=== PATIENT | male | born 1970 | race Asian ===

== ENCOUNTER 2016-07-11 19:04 | Inpatient (IN) | payer OTHER ==
[~2016-07-11] VITALS: Ht 167.6 cm; Wt 65.5 kg
[~2016-07-11 19:04] MED LIST: ATORVASTATIN CA40 M1 PO; CARVEDILOL3.125 M1 PO; COL100 PO; CYCLOBENZAPRINE10 MG PO; FUROSEMIDE40 MG PO; LASIX20 MG PO; METOPROLOL TART25 M1 PO; NOR10T PO; NORCO1 TA2 PO
[2016-07-11 20:22] LABS: BASOPHIL % 0.4 % (0-2); PLATELET COUNT 176 x10^3mcL (130-400); RED CELL DISTRIBUTION WIDTH 13.9 % (11.5-14.5)
[2016-07-11 20:38] LABS: ALBUMIN 4.2 g/dL (3.4-5.0); BILIRUBIN TOTAL 1.5 mg/dL (0.20-1.00); CALCIUM 9.3 mg/dL (8.5-10.1); CARBON DIOXIDE 26.4 mmol/L (21-32); CREATININE SERUM 2.7 mg/dL (0.7-1.3)
[2016-07-11 20:45] LABS: TOTAL PROTEIN, SERUM 8.3 g/dL (6.4-8.2)
[2016-07-11 20:46] LABS: POTASSIUM SERUM 6.3 mmol/L (3.5-5.1)
[2016-07-11] MEDS ORDERED: METOPROLOL TART25 M1 PO (23:27)
[2016-07-11] MEDS ORDERED: BENAZEPRIL HYDR10 M1 PO (23:28)
[2016-07-11] MEDS ORDERED: BACLOFEN10 MG PO (23:30)
[2016-07-11] MEDS ORDERED: INDOMETHACIN25 MG PO (23:31)
[2016-07-12] VITALS (7 sets, daily range): BP systolic 95–140; BP diastolic 66–102
[2016-07-12 00:05] LABS: CARBON DIOXIDE 27.7 mmol/L (21-32); CREATININE SERUM 2.1 mg/dL (0.7-1.3); POTASSIUM SERUM 4.5 mmol/L (3.5-5.1)
[2016-07-12 00:14] LABS: CHOLESTEROL/HDL RATIO 4.3
[2016-07-12 00:32] LABS: T3 TOTAL 0.86 ng/mL
[2016-07-12 00:36] LABS: FREE T4 0.98 ng/dL (0.76-1.46); FREE THYROXINE INDEX 2.7 ug/dL (1.4-4.5)
[2016-07-12 05:02] LABS: BASOPHIL % 0.1 % (0-2); PLATELET COUNT 179 x10^3mcL (130-400); RED CELL DISTRIBUTION WIDTH 14.1 % (11.5-14.5)
[2016-07-12 05:21] LABS: CALCIUM 6.6 mg/dL (8.5-10.1); CARBON DIOXIDE 23.3 mmol/L (21-32); CREATININE SERUM 1.8 mg/dL (0.7-1.3); MAGNESIUM 1.6 mg/dL (1.8-2.4); PHOSPHOROUS 2.6 mg/dL (2.5-4.9); POTASSIUM SERUM 4.1 mmol/L (3.5-5.1)
[2016-07-12 19:09] LABS: CALCIUM 7.3 mg/dL (8.5-10.1); CARBON DIOXIDE 26.6 mmol/L (21-32); CREATININE SERUM 1.7 mg/dL (0.7-1.3); POTASSIUM SERUM 3.3 mmol/L (3.5-5.1)
[2016-07-13 03:12] VITALS: BP 103/70
[2016-07-13 05:46] LABS: BASOPHIL % 0.1 % (0-2); PLATELET COUNT 147 x10^3mcL (130-400); RED CELL DISTRIBUTION WIDTH 13.9 % (11.5-14.5)
[2016-07-13 05:59] LABS: CARBON DIOXIDE 23.4 mmol/L (21-32); CREATININE SERUM 1.5 mg/dL (0.7-1.3); MAGNESIUM 2.4 mg/dL (1.8-2.4); POTASSIUM SERUM 3.3 mmol/L (3.5-5.1); URIC ACID 6.9 mg/dL (3.5-7.2)
[2016-07-13 08:00] VITALS: BP 111/72
[2016-07-13 12:00] VITALS: BP 95/66
[2016-07-13 16:30] VITALS: BP 92/66
[2016-07-13 17:13] VITALS: BP 105/73
[2016-07-13 17:54] LABS: UA SPECIFIC GRAVITY >=1.030 (1.005-1.035); microscopic required? YES; urine erythrocyte TRACE (NEGATIVE)
[2016-07-13 21:24] VITALS: BP 112/72
[2016-07-13 23:40] LABS: AMPHETAMINE QUAL UR NONE DETECTED (NEG <=1000)
[2016-07-14 05:52] VITALS: BP 137/82
[2016-07-14 06:31] LABS: BASOPHIL % 0.1 % (0-2); PLATELET COUNT 162 x10^3mcL (130-400); RED CELL DISTRIBUTION WIDTH 13.5 % (11.5-14.5)
[2016-07-14 06:43] LABS: CALCIUM 7.8 mg/dL (8.5-10.1); CARBON DIOXIDE 22.3 mmol/L (21-32); CREATININE SERUM 1.5 mg/dL (0.7-1.3); MAGNESIUM 2.1 mg/dL (1.8-2.4); PHOSPHOROUS 2.9 mg/dL (2.5-4.9); POTASSIUM SERUM 3.8 mmol/L (3.5-5.1)
[2016-07-14 09:39] VITALS: BP 126/78
[2016-07-14] MEDS ORDERED: ASPIR 8181 MG PO ×2 (11:00→11:53)
[2016-07-14] MEDS ORDERED: SIMETHICONE80 MG CH (11:45)
[2016-07-14] MEDS ORDERED: PROTONIX40 MG PO (11:45)
[2016-07-14] MEDS ORDERED: CLINDAMYCIN HC300 MG PO (11:51)
[2016-07-14] MEDS ORDERED: LEVAQUIN750 MG PO (11:51)
[2016-07-14] MEDS ORDERED: LAC PO (11:52)
[2016-07-14 12:38] VITALS: BP 126/78
== END 2016-07-14 16:38 | disposition home or self-care (01) | DRG 720 ==
LOC: ED 19:04 → IC 23:12 → DU 07-13 16:30
PROVIDERS: Emergency Medicine; Family Medicine; Internal Medicine Interventional Cardiology; ADMIT Family Medicine
PROC: 05HM33Z Insertion of Infusion Device into Right Internal Jugular Vein, Percutaneous Approach (ICD-10-PCS; principal; 2016-07-12)
PROC: B543ZZA Ultrasonography of Right Jugular Veins, Guidance (ICD-10-PCS; 2016-07-12)
DX: A41.9 Sepsis, unspecified organism (principal); N17.0 Acute kidney failure with tubular necrosis; R65.21 Severe sepsis with septic shock; I50.43 Acute on chronic combined systolic (congestive) and diastolic (congestive) heart failure; G93.41 Metabolic encephalopathy; D68.69 Other thrombophilia; I42.9 Cardiomyopathy, unspecified; I95.9 Hypotension, unspecified; I11.0 Hypertensive heart disease with heart failure; E11.51 Type 2 diabetes mellitus with diabetic peripheral angiopathy without gangrene; E11.65 Type 2 diabetes mellitus with hyperglycemia; E86.0 Dehydration; K52.9 Noninfective gastroenteritis and colitis, unspecified; Z53.29 Procedure and treatment not carried out because of patient's decision for other reasons; E87.5 Hyperkalemia; K21.9 Gastro-esophageal reflux disease without esophagitis; M10.9 Gout, unspecified; I25.2 Old myocardial infarction; Z95.1 Presence of aortocoronary bypass graft; Z68.24 Body mass index [BMI] 24.0-24.9, adult; Z91.14 Patient's other noncompliance with medication regimen; Z79.899 Other long term (current) drug therapy; Z83.3 Family history of diabetes mellitus; Z82.49 Family history of ischemic heart disease and other diseases of the circulatory system; Z87.891 Personal history of nicotine dependence; Z72.89 Other problems related to lifestyle
CPT/HCPCS: 36556; 36600; 80307; 82962; 83880; 84439; G0480; J1642; J1815; J1885; J1940; J2060; J2270; J2543; J3475; J3490; J7030; J7040; Q0092

== ENCOUNTER 2018-08-03 10:43 | Emergency (ER) | payer OTHER ==
[~2018-08-03] VITALS: Ht 167.6 cm; Wt 67.6 kg
[~2018-08-03 10:43] MED LIST changes: +ASPIR 8181 MG PO; +BACLOFEN10 MG PO; +BENAZEPRIL HYDR10 M1 PO; +CLINDAMYCIN HC300 MG PO; +INDOMETHACIN25 MG PO; +LAC PO; +LEVAQUIN750 MG PO; +PROTONIX40 MG PO; +SIMETHICONE80 MG CH
[2018-08-03 10:47] VITALS: Ht 167.6 cm; Wt 67.6 kg
[2018-08-03 11:59] LABS: BASOPHIL % 0.2 % (0-2); PLATELET COUNT 223 x10^3mcL (130-400); RED CELL DISTRIBUTION WIDTH 13.4 % (11.5-14.5)
[2018-08-03 12:26] LABS: CALCIUM 10.4 mg/dL (8.5-10.1); CARBON DIOXIDE 27.7 mmol/L (21-32); CREATININE SERUM 1.5 mg/dL (0.7-1.3); POTASSIUM SERUM 4.7 mmol/L (3.5-5.1)
[2018-08-03 12:29] LABS: ALBUMIN 3.8 g/dL (3.4-5.0); BILIRUBIN TOTAL 0.96 mg/dL (0.20-1.00); TOTAL PROTEIN, SERUM 7.7 g/dL (6.4-8.2)
[2018-08-03 14:00] VITALS: BP 131/68
== END 2018-08-03 14:00 | disposition home or self-care (01) ==
LOC: ED 10:43
PROVIDERS: Emergency Medicine
DX: R07.89 Other chest pain (principal); S61.202A Unspecified open wound of right middle finger without damage to nail, initial encounter; I10 Essential (primary) hypertension; E11.9 Type 2 diabetes mellitus without complications; Z95.1 Presence of aortocoronary bypass graft; W45.8XXA Other foreign body or object entering through skin, initial encounter; Y93.89 Activity, other specified; Y92.89 Other specified places as the place of occurrence of the external cause; Y99.8 Other external cause status
CPT/HCPCS: 36415; J1885; Q0092

== ENCOUNTER 2019-07-19 11:17 | Emergency (ER) | payer OTHER ==
[~2019-07-19] VITALS: Ht 167.6 cm; Wt 64.9 kg
[2019-07-19 11:26] VITALS: Ht 167.6 cm; Wt 64.9 kg
[2019-07-19 14:17] VITALS: BP 95/59
== END 2019-07-19 14:17 | disposition short-term general hospital (02) ==
LOC: ED 11:17
DX: S61.213A Laceration without foreign body of left middle finger without damage to nail, initial encounter (principal); S61.215A Laceration without foreign body of left ring finger without damage to nail, initial encounter; S61.217A Laceration without foreign body of left little finger without damage to nail, initial encounter; M20.032 Swan-neck deformity of left finger(s); I10 Essential (primary) hypertension; E11.9 Type 2 diabetes mellitus without complications; W31.2XXA Contact with powered woodworking and forming machines, initial encounter; Y93.89 Activity, other specified; Y92.096 Garden or yard of other non-institutional residence as the place of occurrence of the external cause; Y99.8 Other external cause status
CPT/HCPCS: 90715; J0696; J1885; J2001